=== PATIENT | female | born 1980 ===

== ENCOUNTER 2017-04-21 15:42 | Emergency (ER) | payer SELFPAY ==
[2017-04-21 16:10] VITALS: O2SAT 97
--- NOTE | 2017-04-21 16:54 | C.PDOC ---
History Of Present Illness 37 year old female presents to the ER complaining of pain to joints in both shoulders and knees which has been present on and off for a a few weeks. Patient states that the pain in her knees radiates down to both of her legs and the pain is worse at the end of day.She denies any injury, swelling, numbness, and weakness. Patient reports that she took an over the counter cream which provided mild relief. She denies taking any oral medications. Time Seen by Provider: 04/21/17 16:33 Chief Complaint (Nursing): Upper Extremity Problem/Injury History Per: Patient History/Exam Limitations: no limitations Onset/Duration Of Symptoms: Days Current Symptoms Are (Timing): Still Present Severity: Moderate Past Medical History Reviewed: Historical Data, Nursing Documentation, Vital Signs Vital Signs: Last Vital Signs Temp 98.3 F 04/21/17 16:08 Pulse 61 04/21/17 16:08 Resp 16 04/21/17 16:08 BP 105/69 04/21/17 16:08 Pulse Ox 97 04/21/17 17:49 - Medical History PMH: No Chronic Diseases Surgical History: No Surg Hx - [facility] Procedures REMOVAL HEAD/NECK FB (10/14/12) Family History: States: No Known Family Hx - Social History Hx Tobacco Use: No Hx Alcohol Use: No Hx Substance Use: No - Immunization History Hx Tetanus Toxoid Vaccination: No Hx Influenza Vaccination: No Hx Pneumococcal Vaccination: No Review Of Systems Constitutional: Negative for: Fever Cardiovascular: Negative for: Chest Pain, Palpitations Respiratory: Negative for: Cough, Shortness of Breath Gastrointestinal: Negative for: Vomiting, Abdominal Pain, Diarrhea Musculoskeletal: Positive for: Shoulder Pain (pain in joints in both shoulders) , Leg Pain (pain in joints in both knees, pain radiates down both legs) Neurological: Negative for: Weakness, Numbness Physical Exam - Physical Exam Appears: Non-toxic, No Acute Distress Skin: Normal Color, Warm Head: Atraumatic, Normacephalic Eye(s): bilateral: Normal Inspection Nose: Normal Oral Mucosa: Moist Neck: Supple Chest: Symmetrical Cardiovascular: Rhythm Regular Respiratory: Normal Breath Sounds, No Accessory Muscle Use Extremity: Normal ROM (normal ROM in all extremities ), No Calf Tenderness, Capillary Refill (normal capillary refill < 2 seconds), No Swelling, Other (no joint erthyema or tactile warmth) Pulses: Left Radial: Normal, Right Radial: Normal, Left Dorsalis Pedis: Normal, Right Dorsalis Pedis: Normal Neurological/Psych: Oriented x3, Normal Speech, Other (no focal deficits) Gait: Steady ED Course And Treatment O2 Sat by Pulse Oximetry: 97 (RA) Pulse Ox Interpretation: Normal Medical Decision Making Medical Decision Making: Impression: joint pains Plan: Toradol IM Re-Eval: Patient with joint pain and no history of fall or injury, thus xray not indicated. Exam was benign, no signs of bursitis, septic arthritis or effusion. Patient reports feeling better after Toradol. Patient advised to take analgesics as needed. Recommend follow up with clinic for further evaluation and possible labwork for arthritis. Also recommend vitamin supplements for joints. Disposition Counseled Patient/Family Regarding: Diagnosis, Need For Followup, Rx Given - Disposition Referrals: Vijaya Banuelos MD [Staff Provider] - Disposition: HOME/ ROUTINE Disposition Time: 17:30 Condition: GOOD Additional Instructions: Por favor, siga con la clnica para ms cuidados Albee medicamento para el dolor segn sea necesario Intente sera vitaminas para fortalecer los huesos, aruna la vitamina D y el calcio Prescriptions: Ibuprofen [Motrin] 600 mg PO Q8 #30 tab Instructions: Arthralgia (ED) Forms: [facility] [employer] (Estonian) Print Language: PORTUGUESE - POA Present On Arrival: None - Clinical Impression Clinical Impression: Arthralgia - PA / [employer]ER / Resident Statement MD/DO has reviewed & agrees with the documentation as recorded. - Scribe Statement The provider has reviewed the documentation as recorded by the Kiya Pedro Provider Attestation All medical record entries made by the Scribe were at my direction and personally dictated by me. I have reviewed the chart and agree that the record accurately reflects my personal performance of the history, physical exam, medical decision making, and the department course for this patient. I have also personally directed, reviewed, and agree with the discharge instructions and disposition.
[2017-04-21 18:09] VITALS: BP 98/58; PULSE 58; RESP 18; TEMP 98.1
== END 2017-04-21 17:56 | disposition home or self-care (01) ==
LOC: C.ER 15:42
DX: M25.50 Pain in unspecified joint (principal)
CPT/HCPCS: 96372; 99284; J1885

== ENCOUNTER 2017-05-26 11:54 | Emergency (ER) | payer SELFPAY ==
[2017-05-26 11:54] VITALS: BMI 29.5
[2017-05-26 13:23] VITALS: RESP 20
[2017-05-26 14:08] LABS: HCG,QUALITATIVE URINE NEGATIVE (NEGATIVE)
[2017-05-26 14:14] LABS: SQUAMOUS EPITHIAL 11 /hpf (0-5); URINE BACTERIA RARE (<OCC); URINE BILIRUBIN NEGATIVE (NEGATIVE); URINE BLOOD NEGATIVE (NEGATIVE); URINE CLARITY Hazy (Clear); URINE COLOR Yellow (YELLOW); URINE GLUCOSE (UA) NORMAL (Normal); URINE LEUKOCYTE ESTERASE NEG Leu/uL (Negative); URINE NITRATE NEGATIVE (NEGATIVE); URINE PROTEIN NEGATIVE (NEGATIVE); URINE UROBILINOGEN NORMAL mg/dL (0.2-1.0)
[2017-05-26] MEDS ORDERED: Belladonna-Phenobarbital PO STA (14:50)
[2017-05-26] MEDS ORDERED: Belladonna-Phenobarbital ONE (15:01)
--- NOTE | 2017-05-26 15:32 | C.PDOC ---
History Of Present Illness 37yo female presents with complaints of pressure like suprapubic pain, starting today. She denies any associated pelvic pain, dysuria, frequency, hematuria, vaginal itching or vaginal discharge. Of note, patient states she has had constipation for the past 2 days as well. She denies any associated fever, chills or nausea. Time Seen by Provider: 05/26/17 14:44 Chief Complaint (Nursing): Abdominal Pain History Per: Patient History/Exam Limitations: no limitations Onset/Duration Of Symptoms: Days Current Symptoms Are (Timing): Still Present Location Of Pain/Discomfort: Suprapubic Radiation Of Pain To:: None Quality Of Discomfort: Pressure Associated Symptoms: Constipation, Urinary Symptoms. denies: Fever, Chills, Nausea, Vomiting, Diarrhea, Loss Of Appetite Last Bowel Movement: Days Ago (2) Additional History Per: Patient Abnormal Vaginal Bleeding: No Past Medical History Reviewed: Historical Data, Nursing Documentation, Vital Signs Vital Signs: Last Vital Signs Temp 98.6 F 05/26/17 16:11 Pulse 63 05/26/17 16:11 Resp 20 05/26/17 16:11 BP 91/58 L 05/26/17 16:11 Pulse Ox 100 05/26/17 16:11 - Medical History PMH: No Chronic Diseases Surgical History: - [facility] Procedures REMOVAL HEAD/NECK FB (10/14/12) Family History: States: No Known Family Hx - Social History Hx Tobacco Use: No Hx Alcohol Use: No Hx Substance Use: No - Immunization History Hx Tetanus Toxoid Vaccination: No Hx Influenza Vaccination: No Hx Pneumococcal Vaccination: No Review Of Systems Constitutional: Negative for: Fever, Chills Cardiovascular: Negative for: Chest Pain Respiratory: Negative for: Shortness of Breath Gastrointestinal: Positive for: Abdominal Pain (suprapubic), Constipation Genitourinary: Negative for: Dysuria, Frequency, Hematuria, Vaginal Discharge, Vaginal Bleeding, Pelvic Pain Skin: Negative for: Rash Neurological: Negative for: Headache Physical Exam - Physical Exam Appears: Well, Non-toxic, No Acute Distress Skin: Normal Color, Warm, Dry Head: Atraumatic, Normacephalic Eye(s): bilateral: Normal Inspection, EOMI Neck: Normal ROM, Supple Chest: Symmetrical Cardiovascular: Rhythm Regular, No Murmur Respiratory: Normal Breath Sounds, No Rales, No Rhonchi, No Wheezing Gastrointestinal/Abdominal: Bowel Sounds (active), Soft, Tenderness (mild suprapubic tenderness), No Mass, No Distention, No Guarding, No Rebound Back: Normal Inspection Extremity: Bilateral: Atraumatic, Normal Color And Temperature, Normal ROM Neurological/Psych: Oriented x3, Normal Speech Gait: Steady ED Course And Treatment O2 Sat by Pulse Oximetry: 98 (RA) Pulse Ox Interpretation: Normal Medical Decision Making Medical Decision Making: Impression: Suprapubic pain x 1 day Plan: -- Urinalysis Time: 1450 Urinalysis is negative. Patient refuses pelvic exam, states she does not have any vaginal discharge or pain. Wants xray -- XR Abdomen ordered -- 1 tab PO 1555 Abdominal xray viewed by me showing normal gas pattern and moderate fecal retention 1601 Patient reevaluated and remains sitting comfortably in no distress, talking on her cell phone. She reports she feels better, abdomen is soft without guarding or rebound and she has no fever to suggest infectious or surgical pathology. Symptoms likely related to constipation. Recommend increase in water and fiber intake. Will prescribe laxative to take at home. Patient is stable for discharge. Instruct to follow up with the clinic. Disposition Counseled Patient/Family Regarding: Diagnosis, Need For Followup, Rx Given - Disposition Referrals: Vijaya Banuelos MD [Staff Provider] - Disposition: HOME/ ROUTINE Disposition Time: 16:02 Condition: IMPROVED Additional Instructions: Coma ms fibra ian ms hank sera medicamentos para el estreimiento ve a tu doctor Regrese al departamento de emergencia en cualquier momento si los sntomas persisten o empeoran. Eat more fiber drink more water take medications for constipation go to your doctor Return to the emergency department at any time if symptoms persist or worsen. Prescriptions: Docusate [Colace] 100 mg PO TID PRN #30 cap PRN Reason: Constipation Magnesium Citrate [Citrate of Mag] 300 ml PO ONCE PRN #1 bottle PRN Reason: Constipation Instructions: Constipation (ED), High Fiber Diet (ED) Forms: [employer] (Swiss) Print Language: AZERI - POA Present On Arrival: None - Clinical Impression Clinical Impression: Lower abdominal pain, Constipation - PA / CODING VALIDATOR / Resident Statement MD/DO has reviewed & agrees with the documentation as recorded. - Scribe Statement The provider has reviewed the documentation as recorded by the Scribe (Zahra Zaragoza) Provider Scribe Attestation: All medical record entries made by the Scribe were at my direction and personally dictated by me. I have reviewed the chart and agree that the record accurately reflects my personal performance of the history, physical exam, medical decision making, and the department course for this patient. I have also personally directed, reviewed, and agree with the discharge instructions and disposition.
--- NOTE | 2017-05-26 16:08 | RAD ---
HISTORY: abd pain COMPARISON: None available. FINDINGS: BOWEL: Nonobstructive bowel gas pattern. Moderate constipation. BONES: No acute osseous abnormality is detected. OTHER FINDINGS: None. IMPRESSION: Moderate constipation.
[2017-05-26 16:12] VITALS: BP 91/58; PULSE 63; TEMP 98.6
[2017-05-29 19:55] VITALS: O2SAT 98
== END 2017-05-26 16:16 | disposition home or self-care (01) ==
LOC: C.ER 11:54
DX: R10.30 Lower abdominal pain, unspecified (principal)

== ENCOUNTER 2018-06-24 13:47 | Outpatient (CLI) | payer SELFPAY | END 2018-06-24 13:48 | disposition home or self-care (01) | LOC: C.MAMMO 13:47 | DX: Z12.31 Encounter for screening mammogram for malignant neoplasm of breast (principal) ==